=== PATIENT | male | born 1955 | race Caucasian/White ===

== ENCOUNTER → 2019-11-25 10:54 | Outpatient (CLI) | payer OTHER, SELFPAY ==
[2019-11-25 12:51] LABS: Prostate Specific Antigen < 0.064 ng/mL (0.10-4.00)
== END ==
PROVIDERS: PCP Internal Medicine
DX: C61 Malignant neoplasm of prostate (principal)
CPT/HCPCS: 36415; 84153

== ENCOUNTER → 2019-12-05 11:04 | Outpatient (CLI) | payer OTHER, SELFPAY ==
[2019-12-05 12:17] LABS: Add Manual Diff / Slide Review NO; Basophils Absolute Auto 0 /uL (0-100); Basophils Percent Auto 0.7 % (0-2); Eosinophils Absolute Auto 100 /uL (0-450); Hemoglobin 15.4 g/dL (13.5-17.5); Lymphocytes Absolute Auto 900 /uL (1100-4500); Lymphocytes Percent Auto 21.4 % (25-40); Mean Corpuscular HGB Conc 34.3 % (30-36); Mean Corpuscular Hemoglobin 32.1 PG (26-34); Mean Corpuscular Volume 93.6 fL (80-100); Monocytes Absolute Auto 600 /uL (0-900); Monocytes Percent Auto 12.6 % (3-14); Neutrophils Absolute Auto 2800 /uL (1500-7000); Neutrophils Percent Auto 63.3 % (50-75); Platelet Count 204 X10^3/uL (150-400); Red Blood Cell Count 4.81 X10^6/uL (4.5-5.9); Red Cell Distribution Width 13.6 % (11.6-14.8); White Blood Cell Count 4.4 X10^3/uL (4.5-11.0)
[2019-12-05 22:14] LABS: Testosterone 408 ng/dL (71.8-623)
== END ==
PROVIDERS: PCP Internal Medicine; Referring Provider Internal Medicine; Visit Provider Urology
DX: C61 Malignant neoplasm of prostate (principal); Z79.899 Other long term (current) drug therapy
CPT/HCPCS: 36415; 84403; 85025

== ENCOUNTER → 2021-12-15 10:14 | Outpatient (CLI) | payer OTHER, SELFPAY ==
[2021-12-16 07:50] LABS: PSA Ultrasensitive 0.623 ng/mL (0.000-4.000)
== END ==
PROVIDERS: PCP Internal Medicine; Referring Provider Radiology Neuroradiology; Visit Provider Radiology Neuroradiology
DX: Z85.46 Personal history of malignant neoplasm of prostate (principal)
CPT/HCPCS: 36415; 84153